=== PATIENT | female | born 1990 | race Caucasian/White ===

== ENCOUNTER → 2019-03-09 12:39 | Outpatient (POV) | payer OTHER, SELFPAY ==
[2019-03-09 14:05] LABS: Basophils # 0.1 K/mm3 (0-0.2); Basophils % 0.8 % (0.1-2.0); Eosinophils # 0.1 K/mm3 (0.0-0.4); Eosinophils % 1.3 % (0.1-12.0); Hemoglobin 12.6 g/dL (12.2-16.2); Lymphocytes # 2.2 K/mm3 (0.7-4.5); Lymphocytes % 28.2 % (10-50); Mean Corpuscular HGB Conc 32.2 g/dL (31.8-35.4); Mean Corpuscular Hemoglobin 26.3 pg (27.0-31.2); Mean Corpuscular Volume 81.8 fl (81-99); Mean Platelet Volume 9.2 fl (7.4-10.4); Monocytes # 0.3 K/mm3 (0.1-1.0); Monocytes % 4.3 % (1.7-9.3); Neutrophils # 5.1 K/mm3 (1.8-7.8); Neutrophils % 65.4 % (37.0-80.0); Platelet Count 309 K/mm3 (142-424); Red Blood Count 4.77 M/mm3 (4.20-5.40); Red Cell Distribution Width 13.1 % (11.5-17.5); White Blood Count 7.8 K/mm3 (4.8-10.8)
[2019-03-09 14:21] LABS: Hemoglobin A1C 5.2 % (0.0-7.0)
[2019-03-09 14:48] LABS: Iron 57 ug/dl (28-170)
[2019-03-09 20:25] LABS: Alanine Aminotransferase 34 U/L (12-78); Alkaline Phosphatase 81 U/L (46-116); Anion Gap 16.9 mEq/L (5-15); Aspartate Amino Transferase 27 U/L (15-37); Bilirubin,Total 0.4 mg/dL (0.2-1.0); Blood Urea Nitrogen 16 mg/dL (7-18); Calcium 8.9 mg/dL (8.5-10.1); Carbon Dioxide 24 mmol/L (21.0-32.0); Chloride 104 mmol/L (98-107); Chol/HDL Ratio 3.1 (1-3.5); Cholesterol 177 mg/dL (140-200); Creatinine,Serum 0.81 mg/dL (0.55-1.02); Estimated Glomerular Filt Rate 84 ml/min (>60); Ferritin 86 ng/mL (8-388); GFR (African American) 101 ML/MIN (>60); Globulin 3.9 gm/dl (1.3-3.2); Glucose 83 mg/dL (74-106); HDL Cholesterol 57 mg/dL (29-89); LDL Cholesterol 103 mg/dL (0-130); Phosphorous 3.3 mg/dL (2.4-4.9); Potassium 3.9 mmoL/L (3.5-5.1); Sodium 141 mmol/L (136-145); Thyroid Stimulating Hormone 2.34 uIU/ml (0.358-3.740); Total Protein,Serum 7.9 gm/dL (6.4-8.2); Triglycerides 87 mg/dL (30-200); VLDL Cholesterol 17 mg/dL (0-40)
[2019-03-11 09:27] LABS: Folate 11.5 ng/mL (>3.0); Parathyroid Hormone Intact 22 pg/mL (15-65); Prealbumin 25 mg/dL (14-35); Vitamin D 25 Hydroxy 29.5 ng/mL (30.0-100.0)
[2019-03-13 03:08] LABS: Vitamin E Alpha Tocopherol 9.2 mg/L (5.9-19.4)
[2019-03-13 19:12] LABS: Methylmalonic Acid 137 nmol/L (0-378)
[2019-03-15 08:52] LABS: Vitamin A 45.6 ug/dL (18.9-57.3); Vitamin B1 171.7 nmol/L (66.5-200.0); Vitamin E Gamma Tocopherol 1.9 mg/L (0.7-4.9)
== END ==
PROVIDERS: Visit Provider Physician Assistant
DX: E66.01 Morbid (severe) obesity due to excess calories (principal); Z68.42 Body mass index [BMI] 45.0-49.9, adult; Z71.3 Dietary counseling and surveillance; E55.9 Vitamin D deficiency, unspecified
CPT/HCPCS: 36415; 80053; 80061; 82131; 82652; 82728; 82746; 83036; 83540; 83735; 83970; 84100; 84134; 84425; 84443; 84446; 84590; 85025

== ENCOUNTER → 2019-04-03 11:10 | Outpatient (CLI) | payer OTHER, SELFPAY ==
[2019-04-03 13:19] LABS: Chol/HDL Ratio 2.8 (1-3.5); Cholesterol 146 mg/dL (140-200); HDL Cholesterol 53 mg/dL (29-89); LDL Cholesterol 76 mg/dL (0-130); Triglycerides 84 mg/dL (30-200); VLDL Cholesterol 17 mg/dL (0-40)
== END ==
PROVIDERS: Visit Provider Internal Medicine Adolescent Medicine
DX: E78.49 Other hyperlipidemia (principal)
CPT/HCPCS: 36415; 80061

== ENCOUNTER → 2020-03-12 11:58 | Outpatient (CLI) | payer OTHER, SELFPAY ==
[2020-03-13 11:05] LABS: Covid-19 Nasal PCR Sendout P&C Negative
== END ==
PROVIDERS: PCP Internal Medicine Adolescent Medicine; Visit Provider Internal Medicine Adolescent Medicine
DX: Z20.822 Contact with and (suspected) exposure to COVID-19 (principal); R05 Cough
CPT/HCPCS: U0004

== ENCOUNTER → 2020-03-30 10:36 | Outpatient (CLI) | payer OTHER, SELFPAY ==
--- NOTE | 2020-03-30 10:48 | XR_ITS ---
PROCEDURE: XR KNEE RT 3V XR KNEE LT 3V Referring Doctor: Hunter Roach Patient Age:30Y CLINICAL INDICATION: RIGHT and left KNEE PAIN COMPARISON: no studies prior to today CR XR KNEE LT 3V from 03/30/2020 TECHNIQUE: Right knee: 3 View AP, Oblique, Lateral nonweightbearing Left knee: 3 View AP, Oblique, Lateral nonweightbearing FINDINGS: Right knee three view:--------- Right knee intact with no fracture or dislocation right knee. No lytic or blastic change. The joint spaces well maintained on this nonweightbearing film with no definitive degenerative changes radiographically. Likely upper normal joint fluid suprapatellar bursa on lateral view. No osseous lesions. Normal mineralization. -------left knee three view ------ Left knee intact with no fracture or dislocation left knee. . No lytic or blastic change. The joint spaces well maintained on this nonweightbearing film with no definitive degenerative changes radiographically. Likely upper normal joint fluid suprapatellar bursa on lateral view. No osseous lesions. Normal mineralization. IMPRESSION: Right and left knee appear intact-no significant findings on plain film the. . Joint space well maintained bilateral on these nonweightbearing studies Suggestion upper normal joint fluid at suprapatellar bursa on lateral views Dictated by: Lito Dia MD 03/30/2020 16:44 Lito Dia MD in [place] 03/30/2020 16:44
== END ==
PROVIDERS: PCP Internal Medicine Adolescent Medicine; Referring Provider Internal Medicine Adolescent Medicine; Visit Provider Internal Medicine Adolescent Medicine
DX: M25.562 Pain in left knee (principal); M25.561 Pain in right knee
CPT/HCPCS: 73562

== ENCOUNTER 2020-06-06 10:00 | Outpatient (RCR) | payer OTHER, SELFPAY ==
--- NOTE | 2020-04-08 10:39 | HMH.PTOPEV ---
PT Outpatient Evaluation Rehab PT Outpatient Evaluation Start: 04/08/20 10:10 Freq: Status: Active Protocol: Document 04/08/20 10:16 CARLOS (Rec: 04/08/20 10:39 CARLOS [id number]) Electronically Signed By Reno Tello PT 04/08/20 10:16 Outpatient Therapy Subjective History Subjective History This is the initial Physical THerapy evaluation for Maria Luisa Yu. Pt is a 30 y/o female referred to PT for c/o B knee pain. Pt reports she was morbidly obese and had severe knee pain all her life. Pt reports ~ july last year she had bariatric surgery and began losing weight. Pt reports she also becam more active at this time. Pt states she thought losing weight would help her knee pain but it has not. Pt reports she has severe pain in knees w/ any squatting activity and severe crepitus w / squating. Chief Complaint Pain Symptom Type Ache,Throb,Sharp,Stabbing Symptoms Relieved By Nothing Symptoms Aggravated By Bending/Stooping,Physical Activity Prior Functional Limitations Squatting,Recreation Activity, Walking,Stairs Current Functional Limitations Squatting,Recreation Activity, Walking,Stairs Symptom Description Intermittent Level of pain today (0-10) 3 Pain scale - at its best (0-10) 2 Pain scale - at its worst (0-10) 8 Hip/Knee Eval Gait Observation General Gait Pattern Observation No Deviations/Normal Assistive Device Assistive Devices None / NA Palpation Tenderness bilateral Knee Palpation Finding Tenderness Knee Palpation Overall Comment TTP along patellar tendon MMT Hip Abduction Strength Grade 5 Normal Hip Adduction Strength Grade 4 Good Hip External Rotation Strength Grade 4 Good Hip Internal Rotation Strength Grade 4 Good Knee Extension Strength Grade 4 Good Knee Flexion Strength Grade 4 Good ROM Hip ROM Reason Not Measured Within Functional Limits Knee ROM Reason Not Measured Within Functional Limits Special Tests Knee Apprehension Test Negative Left,Negative Right Knee Anterior Drawer Test Negative Left,Negative Right Knee Anterior Lindy Test Negative Left,Negative Right Knee Valgus Stress Test Neg
== END 2020-08-28 14:36 | disposition home or self-care (01) ==
LOC: PT 10:00
PROVIDERS: PCP Internal Medicine Adolescent Medicine; Visit Provider Internal Medicine Adolescent Medicine
DX: M25.562 Pain in left knee (principal)
CPT/HCPCS: 97010; 97014; 97033; 97035; 97110; 97163; 97164; G0283

== ENCOUNTER 2020-08-23 19:40 | Emergency (ER) | payer OTHER, SELFPAY ==
[2020-08-23 19:40] VITALS: BP 137/62; PULSE 93; RESP 18; TEMP 38; O2SAT 98; BMI 33.0
--- NOTE | 2020-08-23 20:04 | XR_ITS ---
PROCEDURE INFORMATION: Exam: XR Chest Exam date and time: 08/23/2020 8:04 PM Age: 30 years old Clinical indication: Patient HX: Cough, fever, chills, body ache; Additional info: Cough, fever, chills, body ache. PT has had tubal TECHNIQUE: Imaging protocol: XR of the chest. Views: 2 views. COMPARISON: CR CS5 CERVICAL SPINE 4 OR 5 VIEWS 01/11/2016 10:48 AM FINDINGS: Tubes, catheters and devices: Surgical clips overlie the gallbladder fossa. Lungs: Unremarkable. No consolidation. Pleural spaces: Unremarkable. No pleural effusion. No pneumothorax. Heart/Mediastinum: Unremarkable. No cardiomegaly. Bones/joints: Biphasic curvature of the thoracolumbar spine with dominant dextroconvex curvature centered at T9 having a Parsons angle of 47 degrees. IMPRESSION: No acute findings.
[2020-08-23 20:08] LABS: UTC Influenza A Antigen Negative (Negative)
[2020-08-23 20:08] LABS: Adenovirus,PCR Not Detected (NotDetected); Bordetella Pertussis Not Detected (NotDetected); Chlamydophila Pneumoniae, PCR Not Detected (NotDetected); Coronavirus 19, PCR Not Detected (NotDetected); Coronavirus 229E Not Detected (NotDetected); Coronavirus NL63 Not Detected (NotDetected); Coronavirus OC43 Not Detected (NotDetected); Coronovirus HKU1,PCR Not Detected (NotDetected); Human Metapneumovirus Not Detected (NotDetected); Influenza A, PCR Not Detected (NotDetected); Influenza AH1, 2009 Not Detected (NotDetected); Influenza AH1, PCR Not Detected (NotDetected); Influenza AH3,PCR Not Detected (NotDetected); Influenza B, PCR Not Detected (NotDetected); Mycoplasma Pneumoniae, PCR Not Detected (NotDetected); Parainfluenza 1, PCR Not Detected (NotDetected); Parainfluenza 2, PCR Not Detected (NotDetected); Parainfluenza 3, PCR Not Detected (NotDetected); Parainfluenza 4, PCR Not Detected (NotDetected); Respiratory Syncytial Virus Not Detected (NotDetected); Rhinovirus/Enterovirus Not Detected (NotDetected)
[2020-08-23 20:09] LABS: UTC Influenza B Antigen Negative (Negative); UTC Strep Screen (Rapid) Negative (Negative)
--- NOTE | 2020-08-23 20:15 | HMH.EDUTC ---
[facility] [place] Disposition Clinical Impression: URI (upper respiratory infection) Qualifiers: URI type: unspecified URI Qualified Code(s): J06.9 - Acute upper respiratory infection, unspecified Disposition: Home, Self-Care Condition on Discharge: Good Instructions: DI for Fever (Symptom) -- Adult, Sore Throat, Acute Bronchitis Additional Instructions: *Monitor Temp, Over the counter Motrin or Tylenol as directed/as needed Tylenol every 4 hours and Motrin every 6 hours (as long as your family doctor has told you that you can take it) for fever or pain. and straight to ER if unable to lower temp less than 101.0 after medication given *Warm salt water gargles may help to soothe the throat *Throat Lozenges *Warm fluids like tea with honey may help to soothe the throat *Sleep elevated *Humidifier/Vaporizer Your throat swab was sent for culture. Those results are typically sent to your primary care. Be sure to follow up in 2-3 days with your family doctor/primary care physician if no improvement so they can review those result and treat if necessary. If you don?t have a primary care doctor, I recommend you get one but in the mean time, you will have to return to a walk in clinic Follow up IMMEDIATELY for new or worsening symptoms or no Noticeable improvement over the next 48-72 hours. 911 for difficulty breathing or swallowing You was give Printed prescription for antibiotics if your Upper Respiratory Panel comes back with COVID or other viral syndrome you may tear up and discard the prescriptions, if the test is negative then fill the prescriptions in the next day or two if no improvement and take as directed You were tested for today for COVID19 your test result should be back in the next 24-48 hours, you may call to the [facility] to see if your test results are back in the next 48 hours [phone] [facility] hours are 9am-9pm You was given a handout with instructions for Self Quarantine and Self isolation for while you wait on test results and what to do if they are positive If you are positive the Health Dept will be contacting you also Prescriptions: methylPREDNISolone [Medrol 4mg tab] 4 mg PO DIRECTED #21 tab Prescription Printed Azithromycin [Z-Vineet 250mg Tab] 250 mg PO DIRECTED #6 tab Prescription Printed Referrals: Hunter Roach MD [Primary Care Provider] - As needed Time of Disposition: 21:23 Medical Decision Making - Jose Manuel Inquiry Pt receiving controlled substance: No Jose Manuel was queried for this patient: No Vital Signs: 08/23/20 19:40 08/23/20 20:27 08/23/20 20:32 Temperature 100.4 F H 102.3 F H 102.3 F H Temperature Source Oral Oral Pulse Rate 93 H Pulse Rate [Right Brachial] 93 H Respiratory Rate 18 18 Blood Pressure 137/62 Blood Pressure [Right Arm] 137/62 Blood Pressure Mean [Right Arm] 87 Blood Pressure Source [Right Arm] Automatic Cuff Blood Pressure Position [Right Arm] Sitting 02 Sat by Pulse Oximetry 98 Oxygen Delivery Method Room Air - Lab Data Lab results reviewed: Yes: I reviewed the patient's lab results. Lab Results 08/23/20 19:59: Influenza Type A Ag Negative, Influenza Type B Ag Negative 08/23/20 19:59: Strep Scn Rapid Clinic Negative Orders (Tests/Meds): ED MEDICATIONS Discontinued Medications Generic Name Dose Route Start Last Admin Trade Name Fredis PRN Reason Stop Dose Admin Acetaminophen 650 mg 08/23/20 20:34 08/23/20 20:38 Acetaminophen 325mg Tab PO 08/23/20 20:35 650 mg ONCE ONE Administration Ibuprofen 800 mg 08/23/20 20:25 08/23/20 20:27 Ibuprofen 400 Mg Tablet PO 08/23/20 20:26 800 mg ONCE ONE Administration ORDERS Category Date Time Status Full Resp Panel w/COVID ([facility]) Routine Lab 08/23/20 19:55 Received Strep Screen Confirmation Stat Micro 08/23/20 19:59 Received - Radiology Data #1 Image(s): Chest Image Reviewed: Yes I have reviewed radiologist's interpretation IMPRESSION: No acute findings. Me
[2020-08-23 20:27] VITALS: TEMP 39.1
[2020-08-23 20:32] VITALS: BP 137/62; PULSE 93; RESP 18; TEMP 37.3; O2SAT 98
[2020-08-23 21:18] VITALS: TEMP 37.3
== END 2020-08-23 21:25 | disposition home or self-care (01) ==
PROVIDERS: Emergency Provider Nurse Practitioner; PCP Internal Medicine Adolescent Medicine
DX: J06.9 Acute upper respiratory infection, unspecified (principal)
CPT/HCPCS: 71046; 87581; 87633; 87798; 87804; 87880; 99202; 99203; G0463

== ENCOUNTER → 2020-11-25 08:04 | Outpatient (CLI) | payer OTHER, SELFPAY ==
[2020-11-25 08:34] LABS: Basophils # 0.1 K/mm3 (0-0.2); Basophils % 0.9 % (0.1-2.0); Eosinophils # 0.2 K/mm3 (0.0-0.4); Eosinophils % 3.6 % (0.1-12.0); Hematocrit 40.2 % (37.0-47.0); Hemoglobin 13.1 g/dL (12.2-16.2); Lymphocytes % 31.5 % (10-50); Mean Corpuscular HGB Conc 32.7 g/dL (31.8-35.4); Mean Corpuscular Hemoglobin 28.4 pg (27.0-31.2); Mean Corpuscular Volume 86.8 fl (81-99); Mean Platelet Volume 9.5 fl (7.4-10.4); Monocytes # 0.3 K/mm3 (0.1-1.0); Monocytes % 4.6 % (1.7-9.3); Neutrophils # 3.7 K/mm3 (1.8-7.8); Neutrophils % 59.5 % (37.0-80.0); Platelet Count 233 K/mm3 (142-424); Red Blood Count 4.63 M/mm3 (4.20-5.40); Red Cell Distribution Width 13.5 % (11.5-17.5); White Blood Count 6.3 K/mm3 (4.8-10.8)
[2020-11-25 09:13] LABS: Free Thyroxine Index 2.8 ug/dL (5.93-13.13); T4 (Thyroxine) 8.5 ug/dl (5.53-11.0); Triiodothryronine (T3) Uptake 33 % (23.5-40.5)
[2020-11-25 09:26] LABS: Thyroid Stimulating Hormone 3.63 uIU/mL (0.465-4.68)
[2020-11-25 19:18] LABS: Alanine Aminotransferase 22 U/L (12-78); Albumin Level 4.2 g/dl (3.5-5.0); Albumin/Globulin Ratio 1.2 (1.1-1.8); Alkaline Phosphatase 78 U/L (38-126); Anion Gap 11.1 mEq/L (5-15); Aspartate Amino Transferase 29 U/L (14-36); Bilirubin,Total 0.5 mg/dl (0.2-1.3); Blood Urea Nitrogen 17 mg/dl (7-17); Calcium 9.2 mg/dl (8.4-10.2); Carbon Dioxide 27 mmol/L (22.0-30.0); Chloride 107 mmol/L (98-107); Estimated Glomerular Filt Rate 117 ml/min (>60); GFR (African American) 142 ML/MIN (>60); Globulin 3.5 g/dL (1.3-3.2); Glucose 89 mg/dl (74-100); Potassium 4.1 mmoL/L (3.5-5.1); Sodium 141 mmol/L (136-145); Total Protein,Serum 7.7 g/dl (6.3-8.2)
[2020-11-25 19:53] LABS: Ferritin 40.9 ng/ml (6.24-137)
[2020-11-25 20:07] LABS: Vitamin B12 415 pg/mL (239-931)
== END ==
PROVIDERS: Visit Provider Internal Medicine Adolescent Medicine
DX: R53.81 Other malaise (principal); R53.83 Other fatigue
CPT/HCPCS: 36415; 80053; 82607; 82728; 84436; 84443; 84479; 85025

== ENCOUNTER 2021-03-10 17:40 | Outpatient (CLI) | payer OTHER, SELFPAY ==
[2021-03-10 18:15] VITALS: BP 145/72; PULSE 68; RESP 14; TEMP 37.3; O2SAT 100
[2021-03-10 18:50] LABS: Basophils # 0.1 K/mm3 (0-0.2); Basophils % 1.6 % (0.1-2.0); Eosinophils # 0.1 K/mm3 (0.0-0.4); Eosinophils % 1.4 % (0.1-12.0); Hemoglobin 13.3 g/dL (12.2-16.2); Lymphocytes # 2.7 K/mm3 (0.7-4.5); Lymphocytes % 36.4 % (10-50); Mean Corpuscular HGB Conc 32.3 g/dL (31.8-35.4); Mean Corpuscular Hemoglobin 28.3 pg (27.0-31.2); Mean Corpuscular Volume 87.4 fl (81-99); Mean Platelet Volume 10.6 fl (7.4-10.4); Monocytes # 0.3 K/mm3 (0.1-1.0); Monocytes % 4.6 % (1.7-9.3); Neutrophils # 4.1 K/mm3 (1.8-7.8); Platelet Count 219 K/mm3 (142-424); Red Blood Count 4.69 M/mm3 (4.20-5.40); Red Cell Distribution Width 13.1 % (11.5-17.5); White Blood Count 7.3 K/mm3 (4.8-10.8)
[2021-03-10 19:10] LABS: Alanine Aminotransferase 25 U/L (12-78); Albumin Level 4.4 g/dl (3.5-5.0); Albumin/Globulin Ratio 1.3 (1.1-1.8); Alkaline Phosphatase 72 U/L (38-126); Anion Gap 14.2 mEq/L (5-15); Aspartate Amino Transferase 35 U/L (14-36); Bilirubin,Total 0.3 mg/dl (0.2-1.3); Blood Urea Nitrogen 19 mg/dl (7-17); Calcium 8.8 mg/dl (8.4-10.2); Carbon Dioxide 23 mmol/L (22.0-30.0); Chloride 104 mmol/L (98-107); Estimated Glomerular Filt Rate 117 ml/min (>60); GFR (African American) 141 ML/MIN (>60); Globulin 3.3 g/dL (1.3-3.2); Glucose 90 mg/dl (74-100); Magnesium 1.8 mg/dl (1.6-2.3); Potassium 4.2 mmoL/L (3.5-5.1); Sodium 137 mmol/L (136-145); Total Protein,Serum 7.7 g/dl (6.3-8.2)
== END 2021-03-10 19:15 | disposition home or self-care (01) ==
PROVIDERS: PCP Internal Medicine Adolescent Medicine; Visit Provider Nurse Practitioner Family
DX: R55 Syncope and collapse (principal); U07.1 COVID-19
CPT/HCPCS: 36415; 80053; 83735; 85025; 96365; 96374; J2405

== ENCOUNTER 2021-12-10 17:24 | Emergency (ER) | payer OTHER, SELFPAY ==
--- NOTE | 2021-12-10 17:29 | EXP.UTC ---
Discharge Plan Disposition Patient Disposition: Home, Self-Care Condition: Good Prescriptions Prescriptions: New ibuprofen [IBU] 800 mg tablet 800 mg PO Q8HP PRN (Reason: Moderate Pain) Qty: 30 0RF benzonatate [benzonatate] 100 mg capsule 100 mg PO TIDP PRN (Reason: Cough) Qty: 30 0RF oseltamivir [Tamiflu] 75 mg capsule 75 mg PO BID Qty: 10 0RF ondansetron 4 mg Tablet,Disintegrating 4 mg PO Q8H PRN (Reason: Nausea) Qty: 20 0RF No Action azithromycin 250 MG tablet 250 mg PO DIRECTED Qty: 6 0RF Rx Instructions: Take two (2) tablets on day #1, then one (1) tablet day #2 thru #5 methylprednisolone 4 MG tablet 4 mg PO DIRECTED Qty: 21 0RF Rx Instructions: Take as directed on package instructions Referrals Follow up/Referrals: Hunter Roach MD [Primary Care Provider] - See instructions Activity Restrictions/Add. Instructions Additional Instructions/Restrictions: Drink plenty of fluids. Take tylenol or ibuprofen for pain or fever. Take the medications as directed. Follow up with your regular doctor. GO TO THE ER FOR ANY WORSENING SYMPTOMS Quarantine until you know the results of your covid-19 test. Notify your school or workplace of your results and follow their instructions regarding return to work/school. Clinical Impressions Clinical Impression: Viral syndrome, Exposure to influenza Instructions Patient Instructions: Influenza, DI for Influenza -- Adult, Oseltamivir Discharge ED Provider: Garth Nelson [facility] General Stated complaint: ache,fever,chills Time Seen by Provider: 12/10/21 17:29 History of Present Illness Provider Complaint: She states that since yesterday she has developed a dry cough, headache and body aches. 2 of her children tested positive for influenza last night. Related Data Previous Rx's Medication Instructions Recorded azithromycin 250 mg tablet 250 mg PO DIRECTED #6 tabs 08/23/20 methylprednisolone 4 mg tablet 4 mg PO DIRECTED #21 tabs 08/23/20 benzonatate 100 mg capsule 100 mg PO TIDP PRN Cough #30 caps 12/10/21 ibuprofen 800 mg tablet (IBU) 800 mg PO Q8HP PRN Moderate Pain 12/10/21 #30 tabs ondansetron 4 mg disintegrating 4 mg PO Q8H PRN Nausea #20 tabs 12/10/21 tablet oseltamivir 75 mg capsule (Tamiflu) 75 mg PO BID #10 caps 12/10/21 Allergies Allergy/AdvReac Type Severity Reaction Status Date / Time No Known Allergies Allergy Verified 02/23/18 09:40 [facility] Social History Smoking Status: Never smoker alcohol intake: never current occupational status: other Travel in the last 8 weeks: None ROS Obtained: Yes All systems reviewed & no additional complaints except as documented Constitutional Constitutional: Reports as per HPI, Reports chills and Denies fever(s) Eyes Eyes: Denies eye discharge ENT Ears, Nose, Mouth, and Throat: Denies dizziness, Denies otalgia and Denies sore throat Cardiovascular Cardiovascular: Denies chest pain Respiratory Respiratory: Denies shortness of breath, Denies chest congestion, Reports cough, Denies stridor and Denies wheezing Gastrointestinal Gastrointestingal: Denies nausea or vomiting Musculoskeletal Musculoskeletal: Reports system reviewed and no additional complaints, except as documented and Denies arthralgias Integumentary/Breasts Skin/Breast: Denies rash Neurologic Neurologic: Denies dizziness and Denies paresthesias Allergic/Immunologic Allergic/Immunologic: Denies wheezing Physical Exam General General appearance: alert and in no apparent distress Head Head exam: atraumatic, normocephalic and normal inspection Eye Eye exam: Present normal appearance, PERRL and EOMI ENT ENT exam: Present normal exam, normal oropharynx, mucous membranes moist, TM's normal bilaterally and normal external ear exam Neck Neck exam: Present normal inspection, full ROM and trachea midline; Absent mening
[2021-12-10 17:35] VITALS: BP 115/72; PULSE 68; RESP 18; TEMP 36.9; O2SAT 100; BMI 34.0
[2021-12-10 17:58] LABS: UTC Influenza A Antigen Negative (Negative); UTC Influenza B Antigen Negative (Negative)
[2021-12-10 18:44] VITALS: BP 120/87; PULSE 62; RESP 17; TEMP 36.9; O2SAT 100
== END 2021-12-10 18:45 | disposition home or self-care (01) ==
PROVIDERS: Emergency Provider Nurse Practitioner Family; PCP Internal Medicine Adolescent Medicine
DX: Z20.828 Contact with and (suspected) exposure to other viral communicable diseases (principal); B34.9 Viral infection, unspecified; R50.9 Fever, unspecified
CPT/HCPCS: 87804; 99212; G0463

== ENCOUNTER 2022-01-07 16:41 | Emergency (ER) | payer OTHER, SELFPAY ==
--- NOTE | 2022-01-07 17:51 | EXP.UTC ---
Discharge Plan Disposition Patient Disposition: Home, Self-Care Condition: Good Prescriptions Prescriptions: New benzonatate [benzonatate] 100 mg capsule 100 mg PO TIDP PRN (Reason: Cough) Qty: 30 0RF promethazine-DM 6.25-15 mg/5 mL Syrup 5 ml PO Q6H PRN (Reason: Cough) Qty: 240 0RF Paxlovid (EUA) 300 mg (150 mg x 2)-100 mg tablet See Rx Instructions .ROUTE .COMPLEX Qty: 30 0RF Rx Instructions: take TWO 150 mg tablets of nirmatrelvir with ONE 100 mg tablet of ritonavir twice daily for 5 days methylprednisolone 4 mg Tablets,Dose Pack 4 mg PO DIRECTED Qty: 21 0RF No Action azithromycin 250 MG tablet 250 mg PO DIRECTED Qty: 6 0RF Rx Instructions: Take two (2) tablets on day #1, then one (1) tablet day #2 thru #5 methylprednisolone 4 MG tablet 4 mg PO DIRECTED Qty: 21 0RF Rx Instructions: Take as directed on package instructions ibuprofen [IBU] 800 mg tablet 800 mg PO Q8HP PRN (Reason: Moderate Pain) Qty: 30 0RF benzonatate [benzonatate] 100 mg capsule 100 mg PO TIDP PRN (Reason: Cough) Qty: 30 0RF oseltamivir [Tamiflu] 75 mg capsule 75 mg PO BID Qty: 10 0RF ondansetron 4 mg Tablet,Disintegrating 4 mg PO Q8H PRN (Reason: Nausea) Qty: 20 0RF Referrals Follow up/Referrals: Hunter Roach MD [Primary Care Provider] - See instructions Activity Restrictions/Add. Instructions Additional Instructions/Restrictions: Drink plenty of fluids. Take tylenol or ibuprofen for pain or fever. Take the medications as directed. Follow up with your regular doctor. GO TO THE ER FOR ANY WORSENING SYMPTOMS Clinical Impressions Clinical Impression: COVID-19 Stand Alone Forms Stand Alone Forms: Work/School Release Instructions Patient Instructions: Coronavirus Disease 2019, Preventing the Spread of Coronavirus Discharge Instructions Discharge ED Provider: Garth Nelson [facility] [place] HPI General Stated complaint: HOME +COVID TEST, BODY ACHES, EAR ACHE Time Seen by Provider: 01/07/22 17:51 History of Present Illness Provider Complaint: She states that she has felt bad for the past 2 days. She tested positive for covid-19 yesterday. She came in today to see if there were any medications that she could be prescribed that might help her feel better. Related Data Previous Rx's Medication Instructions Recorded azithromycin 250 mg tablet 250 mg PO DIRECTED #6 tabs 08/23/20 methylprednisolone 4 mg tablet 4 mg PO DIRECTED #21 tabs 08/23/20 benzonatate 100 mg capsule 100 mg PO TIDP PRN Cough #30 caps 12/10/21 ibuprofen 800 mg tablet (IBU) 800 mg PO Q8HP PRN Moderate Pain 12/10/21 #30 tabs ondansetron 4 mg disintegrating 4 mg PO Q8H PRN Nausea #20 tabs 12/10/21 tablet oseltamivir 75 mg capsule (Tamiflu) 75 mg PO BID #10 caps 12/10/21 benzonatate 100 mg capsule 100 mg PO TIDP PRN Cough #30 caps 01/07/22 methylprednisolone 4 mg tablets in 4 mg PO DIRECTED #21 tabs 01/07/22 a dose pack nirmatrelvir 300 mg (150 mg See Rx Instructions PO .COMPLEX 01/07/22 x2)-ritonavir 100 mg tablet,dose #30 tabs pack(EUA) (Paxlovid) promethazine-DM 6.25 mg-15 mg/5 mL 5 ml PO Q6H PRN Cough #240 mL 01/07/22 oral syrup Allergies Allergy/AdvReac Type Severity Reaction Status Date / Time No Known Allergies Allergy Verified 01/07/22 18:08 [facility] Social History Smoking Status: Never smoker alcohol intake: never current occupational status: other Travel in the last 8 weeks: None ROS Obtained: Yes All systems reviewed & no additional complaints except as documented Constitutional Constitutional: Reports chills and Reports fever(s) Eyes Eyes: Denies eye discharge ENT Ears, Nose, Mouth, and Throat: Reports as per HPI Cardiovascular Cardiovascular: Denies chest pain Respiratory Respiratory: Denies chest congestion and Reports cough Gastrointestinal Gastrointestingal: Reports paula
[2022-01-07 18:04] VITALS: BP 119/85; PULSE 69; RESP 18; TEMP 37; O2SAT 100; BMI 32.3
[2022-01-07 18:39] VITALS: BP 119/85; PULSE 69; RESP 18; TEMP 37
== END 2022-01-07 18:39 | disposition home or self-care (01) ==
PROVIDERS: Emergency Provider Nurse Practitioner Family; PCP Internal Medicine Adolescent Medicine
DX: U07.1 COVID-19 (principal)
CPT/HCPCS: 99212; G0463

== ENCOUNTER → 2022-03-30 17:32 | Outpatient (CLI) | payer OTHER, SELFPAY | PROVIDERS: PCP Internal Medicine Adolescent Medicine; Visit Provider Nurse Practitioner Family | DX: R00.2 Palpitations (principal) | CPT/HCPCS: 93225; 93226 ==

== ENCOUNTER → 2022-04-06 15:02 | Outpatient (CLI) | payer OTHER, SELFPAY ==
--- NOTE | 2022-04-06 | CA_ITS ---
APPROVED REPORT EXAM: Comprehensive 2D, Doppler, and color-flow Echocardiogram Job Training Specialist: Tiffanie Camarena CRT Ht: 5 ft 10 in Wt: 230lbs BSA: 2.21 BP: 110/70 mmHg Indications: Chest Pain, Shortness of Breath, Palpitations, Daughter has a valve disorder. 2D Dimensions LVOT 1.97 cm (M/F) 1.5-2.5 LA Volume 78.60 mL LA Volume Index 34.60 mL/m2 (M/F) 16-34 M-Mode Dimensions RVDd 1.51 cm (0.9-2.6) LA Diam 3.83 cm (1.9-4.0) LVDd 5.43 cm (3.5-5.7) Ao Diam 3.19 cm (2.0-3.7) LVDs 3.78 cm (3.5-5.7) IVSd 1.10 cm (0.6-1.1) PWd 0.96 cm (0.6-1.1) EF (Teich) 57.20% FS 30.40% EDV (Teich) 143.10 mL TAPSE 2.91 (<1.7) ESV (Teich) 61.20 mL LV Diastology E Decel Time 167.00 (160-240 msec) E/A Ratio 1.58 MED E' 11.80 (< 7 cm/sec) MED A' 8.00 cm/s E'/MED E' Ratio 7.90 (>14) LAT E' 17.90 (<10 cm/sec) LAT A' 6.20 cm/s E/LAT E' Ratio 5.21 (>14) Aortic Valve AO Peak GR. 8.80 mmHg Mitral Valve MV A Velocity 59.00 (40-130 cm/s) E/A Ratio 1.58 MV Decel. Time 167.00 (160-240 ms) Pulmonary Valve PV Peak Velocity 195.00 (50-150 cm/s) Tricuspid Valve TR P. Velocity 294.00 cm/s RAP Estimate 10.00 mmHg RVSP 44.60 mmHg Left Ventricle Left atrium is normal size, left ventricle is normal size, estimated ejection fraction 55% with no regional wall motion abnormality, diastolic parameters are within normal range. Right Ventricle Right atrium, right ventricular normal size and contractility. Aortic Valve Aortic valve is grossly normal, there is no aortic stenosis aortic insufficiency. Mitral Valve Mitral valve is grossly normal, there is trace mitral regurgitation. Tricuspid Valve Tricuspid valve grossly normal, there is trace tricuspid regurgitation, tricuspid regurgitation jet plus is inadequate for calculation of the right ventricular systolic pressure. Pulmonic Valve Pulmonic valve is poorly visualized. Great Vessels Aortic root is normal size. Inferior vena cava is normal size with normal inspiratory collapse. Pericardium No significant pericardial effusion noted. Conclusion 1. Normal left ventricular size preserved left ventricular systolic function, estimated ejection fraction 55% with no regional wall motion abnormality, diastolic parameters are within normal range. 2. Trace mitral and tricuspid regurgitation. 3. No significant pericardial effusion noted. 4. Inferior vena cava is normal size with normal inspiratory collapse. Electronically signed by : Niles High MD 04/06/2022 16:56:50
== END ==
PROVIDERS: PCP Internal Medicine Adolescent Medicine; Visit Provider Nurse Practitioner Family
DX: R00.2 Palpitations (principal); R01.2 Other cardiac sounds
CPT/HCPCS: 93306

== ENCOUNTER 2023-01-14 12:53 | Emergency (ER) | payer OTHER, SELFPAY ==
[2023-01-14 12:54] VITALS: BP 124/68; PULSE 89; RESP 16; TEMP 36.8; O2SAT 100; BMI 28.7
[2023-01-14 13:12] LABS: POC Glucose,Bedside 82 (70-110)
--- NOTE | 2023-01-14 13:24 | CT_ITS ---
FINAL REPORT TECHNIQUE: After the administration of contrast, axial images were obtained through the abdomen and pelvis by computed tomography. The study was performed with techniques to keep radiation dose as low as reasonably achievable, (ALARA). Individual dose reduction techniques using automated exposure control or adjustment of mA and/or kV according to the patient's size were employed. CLINICAL HISTORY: sudden mid/epigastric abd pain, severe FINDINGS: Abdomen: The lung bases are clear. There is a small hiatal hernia. The liver parenchyma is homogeneous. The gallbladder is absent. Note is made of gastric sleeve. The spleen, pancreas, adrenals and kidneys appear unremarkable. The aorta is normal in caliber. There is no free fluid or adenopathy. Pelvis: The cecum is low lying. The appendix is not identified consistent with history of appendectomy. The urinary bladder is incompletely distended. The uterus is midline and anteverted. There is no free fluid or adenopathy. There is 25 degrees lumbar scoliosis convex to the left. IMPRESSION: No acute intra-abdominal process. Reviewed, Interpreted and Dictated by Allen Harding MD Transcribed by Tierney Banda Authenticated and . [facility]
--- NOTE | 2023-01-14 13:25 | HMH.EDGENADL ---
Discharge Plan Disposition Patient Disposition: Home, Self-Care Prescriptions Prescriptions: No Action azithromycin 250 MG tablet 250 mg PO DIRECTED Qty: 6 0RF Rx Instructions: Take two (2) tablets on day #1, then one (1) tablet day #2 thru #5 methylprednisolone 4 MG tablet 4 mg PO DIRECTED Qty: 21 0RF Rx Instructions: Take as directed on package instructions ibuprofen [IBU] 800 mg tablet 800 mg PO Q8HP PRN (Reason: Moderate Pain) Qty: 30 0RF benzonatate [benzonatate] 100 mg capsule 100 mg PO TIDP PRN (Reason: Cough) Qty: 30 0RF oseltamivir [Tamiflu] 75 mg capsule 75 mg PO BID Qty: 10 0RF ondansetron 4 mg Tablet,Disintegrating 4 mg PO Q8H PRN (Reason: Nausea) Qty: 20 0RF benzonatate [benzonatate] 100 mg capsule 100 mg PO TIDP PRN (Reason: Cough) Qty: 30 0RF promethazine-DM 6.25-15 mg/5 mL Syrup 5 ml PO Q6H PRN (Reason: Cough) Qty: 240 0RF Paxlovid 300 mg (150 mg x 2)-100 mg tablet See Rx Instructions .ROUTE .COMPLEX Qty: 30 0RF Rx Instructions: take TWO 150 mg tablets of nirmatrelvir with ONE 100 mg tablet of ritonavir twice daily for 5 days methylprednisolone 4 mg Tablets,Dose Pack 4 mg PO DIRECTED Qty: 21 0RF Referrals Follow up/Referrals: Hunter Roach MD [Primary Care Provider] - See instructions Activity Restrictions/Add. Instructions Additional Instructions/Restrictions: There was no emergent medical condition identified on your CAT scan today and your serial abdominal exams were benign from a surgical standpoint. I would recommend that you follow-up with your bariatric surgeon to discuss this with them as it could be an intraluminal ulcer this may causing your pain. Please return within 12 to 24 hours with any significant worsening or ongoing symptoms as there remains some diagnostic uncertainty. Clinical Impressions Clinical Impression: Sudden onset of severe abdominal pain Instructions Patient Instructions: DI for Acute Abdominal Pain Discharge ED Provider: Solange Diaz General Adult HPI General Chief complaint: Abdominal Pain Stated complaint: abd pain, vomiting Time Seen by Provider: 01/14/23 13:18 Mode of Arrival: Wheelchair Source of Information: Patient Limitations: No Limitations Description of Symptoms (Recalled from ER Triage Doc. by RN): Presents to ED with c/o sudden onset 6/10 stomach pain thay radiates to her back with N/V/D that started when she was eating lunch. Patient reports she became very lightheaded with blurred vision and shakiness. Patient reports taking 1g Tylenol and 4mg Zofran with little relief. History of Present Illness HPI narrative: Patient is a 30-year-old female with a history of numerous abdominal surgeries including cholecystectomy appendectomy C-sections tubal ligation and gastric sleeve presents today with sudden abdominal pain. She states that she was in her normal state of health when about 1 hour prior to arrival she had sudden epigastric and mid abdominal pain that radiated to the back. She states that this was associated with nausea vomiting diarrhea diaphoresis and lightheadedness. The pain is still severe but has eased off a slight amount. She has not had any flatus today but has had some diarrhea has not been constipated prior today. History of any vascular pathology. No history of any peptic ulcer disease or diverticulitis. Related Data Previous Rx's Medication Instructions Recorded azithromycin 250 mg tablet 250 mg PO DIRECTED #6 tabs 08/23/20 methylprednisolone 4 mg tablet 4 mg PO DIRECTED #21 tabs 08/23/20 benzonatate 100 mg capsule 100 mg PO TIDP PRN Cough #30 caps 12/10/21 ibuprofen 800 mg tablet (IBU) 800 mg PO Q8HP PRN Moderate Pain 12/10/21 #30 tabs ondansetron 4 mg disintegrating 4 mg PO Q8H PRN Nausea #20 tabs 12/10/21 tablet oseltamivir 75 mg capsule (Tamiflu) 75 mg PO BID #10 caps 12/10/21 benzonatate 100 mg capsule 100 mg PO TIDP PRN Cough #30 caps
--- NOTE | 2023-01-14 13:25 | PC.NURSE ---
Handed off report to Janelle SANDOVAL
[2023-01-14 13:48] LABS: Chloride 105 mmol/L (98-107); Sodium 139 mmol/L (136-145)
[2023-01-14 13:49] LABS: Basophils % 0.4 % (0.1-2.0); Eosinophils # 0.3 K/mm3 (0.0-0.4); Eosinophils % 3.3 % (0.1-12.0); Hematocrit 41.5 % (37.0-47.0); Hemoglobin 13.9 g/dL (12.2-16.2); Lymphocytes # 2.6 K/mm3 (0.7-4.5); Lymphocytes % 32.2 % (10-50); Mean Corpuscular HGB Conc 33.6 g/dL (31.8-35.4); Mean Corpuscular Hemoglobin 28.9 pg (27.0-31.2); Mean Platelet Volume 9.4 fl (7.4-10.4); Monocytes # 0.4 K/mm3 (0.1-1.0); Monocytes % 4.9 % (1.7-9.3); Neutrophils # 4.8 K/mm3 (1.8-7.8); Neutrophils % 59.2 % (37.0-80.0); Platelet Count 244 K/mm3 (142-424); Potassium 3.6 mmoL/L (3.5-5.1); Red Blood Count 4.83 M/mm3 (4.20-5.40); White Blood Count 8.1 K/mm3 (4.8-10.8)
[2023-01-14 13:51] LABS: Alanine Aminotransferase 46 U/L (12-78); Alkaline Phosphatase 87 U/L (38-126); Anion Gap 12.6 mEq/L (5-15); Aspartate Amino Transferase 75 U/L (14-36); Bilirubin,Total 0.6 mg/dl (0.2-1.3); Blood Urea Nitrogen 23 mg/dl (7-17); Carbon Dioxide 25 mmol/L (22.0-30.0); Creatinine Clearance Estimated 165 mL/min (50-200); Estimated Glomerular Filt Rate 97 ml/min (>60); GFR (African American) 117 ML/MIN (>60); Lipase 147 U/L (23-300)
[2023-01-14 13:52] LABS: Albumin Level 4.7 g/dl (3.5-5.0); Albumin/Globulin Ratio 1.3 (1.1-1.8); Calcium 9.1 mg/dl (8.4-10.2); Globulin 3.6 g/dL (1.3-3.2); Glucose 100 mg/dl (74-100); Lactic Acid 1.4 mmol/L (0.7-2.1); Total Protein,Serum 8.3 g/dl (6.3-8.2)
[2023-01-14 13:57] VITALS: BP 138/78; PULSE 89; O2SAT 98
[2023-01-14 14:00] VITALS: BP 133/72; PULSE 81; O2SAT 99
[2023-01-14 14:30] VITALS: BP 133/73; PULSE 82; O2SAT 95
[2023-01-14 14:45] VITALS: PULSE 83; O2SAT 98
[2023-01-14 15:13] VITALS: BP 133/73; PULSE 82; RESP 16; TEMP 36.7; O2SAT 98
== END 2023-01-14 15:14 | disposition home or self-care (01) ==
PROVIDERS: Emergency Provider Student in an Organized Health Care Education/Training Program; PCP Internal Medicine Adolescent Medicine
DX: R10.13 Epigastric pain (principal); R11.2 Nausea with vomiting, unspecified; R42 Dizziness and giddiness; R19.7 Diarrhea, unspecified; Z98.84 Bariatric surgery status
CPT/HCPCS: 74177; 80053; 82962; 83605; 83690; 85025; 96361; 96374; 96375; 99285; J2405; Q9967

== ENCOUNTER 2023-02-13 14:58 | Emergency (ER) | payer OTHER, SELFPAY ==
[2023-02-13 15:25] VITALS: BP 116/73; PULSE 82; RESP 20; TEMP 36.8; O2SAT 100; BMI 30.1
--- NOTE | 2023-02-13 15:37 | ED_ITS ---
Discharge Plan Disposition Patient Disposition: Home, Self-Care Condition: Good Prescriptions Prescriptions: New amoxicillin [amoxicillin] 875 mg tablet 875 mg PO Q12H Qty: 20 0RF [id number] [Bromfed DM] 2-30-10 mg/5 mL Syrup 5 ml PO Q6H PRN (Reason: Cough) Qty: 240 0RF prednisone 10 mg tablet 10 mg PO BID 3 Days Qty: 6 0RF No Action sertraline 50 mg tablet 50 mg PO DAILY Patient Comments: TAKE 1 TABLET BY MOUTH ONCE DAILY Referrals Follow up/Referrals: Hunter Roach MD [Primary Care Provider] - See instructions Activity Restrictions/Add. Instructions Additional Instructions/Restrictions: Drink plenty of fluids. Take tylenol or ibuprofen for pain or fever. Take the medications as directed. Follow up with your regular doctor. GO TO THE ER FOR ANY WORSENING SYMPTOMS Clinical Impressions Clinical Impression: Strep throat Instructions Patient Instructions: Strep Throat, DI for Strep Throat Discharge ED Provider: Garth Nelson [facility] General Stated complaint: tonsils swollen with blisters Time Seen by Provider: 02/13/23 15:37 History of Present Illness Provider Complaint: She states that she has had sore throat for the past 3 days. Related Data Home Medications Medication Instructions Recorded Confirmed sertraline 50 mg tablet 50 mg PO DAILY 02/13/23 02/13/23 Previous Rx's Medication Instructions Recorded amoxicillin 875 mg tablet 875 mg PO Q12H #20 tabs 02/13/23 [id number]-dbcbwmgvbzwygee-EZ 5 ml PO Q6H PRN Cough #240 mL 02/13/23 2 mg-30 mg-10 mg/5 mL oral syrup (Bromfed DM) prednisone 10 mg tablet 10 mg PO BID 3 days #6 tabs 02/13/23 Allergies Allergy/AdvReac Type Severity Reaction Status Date / Time No Known Allergies Allergy Verified 01/07/22 18:[address] [facility] Disclaimer: The information contained in this section may have been updated after the patient was seen, as this information can be updated by other users. Social History Smoking Status: Never smoker alcohol intake: never current occupational status: other Travel in the last 8 weeks: None ROS Obtained: Yes All systems reviewed & no additional complaints except as documented Constitutional Constitutional: Reports chills and Reports fever(s) Eyes Eyes: Denies eye discharge ENT Ears, Nose, Mouth, and Throat: Reports as per HPI Cardiovascular Cardiovascular: Denies chest pain Respiratory Respiratory: Denies chest congestion and Reports cough Gastrointestinal Gastrointestingal: Reports nausea; Denies abdominal pain, constipation, cramping, diarrhea or vomiting Musculoskeletal Musculoskeletal: Denies arthralgias Integumentary/Breasts Skin/Breast: Denies rash Neurologic Neurologic: Denies paresthesias Physical Exam General General appearance: alert and in no apparent distress Head Head exam: atraumatic, normocephalic and normal inspection Eye Eye exam: Present normal appearance, PERRL and EOMI ENT ENT exam: Present mucous membranes moist and normal external ear exam Expanded ENT Exam TM/Canal exam: Bilateral TM: erythema and bulging Nose exam: Absent sinus tenderness Mouth exam: Present normal external inspection; Absent drooling Teeth exam: Present normal inspection Throat exam: Present tonsillar erythema, tonsillomegaly and tonsillar exudate Neck Neck exam: Present normal inspection, full ROM and trachea midline; Absent tenderness, meningismus or lymphadenopathy Chest Chest inspection: Present normal inspection and symmetric chest wall rise; Absent tenderness Respiratory Respiratory exam: Present normal lung sounds bilaterally; Absent respiratory distress, wheezes, stridor or accessory muscle use Cardiovascular Cardiovascular exam: Present regular rate and normal rhythm; Absent systolic murmur or diastolic murmur Abdominal Exam Abdominal exam: Present soft and normal bowel sounds; Absent distention, tenderness, guarding, rebound or rigidity Extremities Exam Extremities exam: Present normal inspection and normal capillary refill; Absent calf tenderness Back Exam Back exam: Present normal inspection and full ROM; Absent tenderness, CVA tenderness (R) or CVA tenderness (L) Neurological Exam Neurological exam: Present alert, oriented X3 and CN II-XII intact Psychiatric Psychiatric exam: Present normal affect and normal mood Skin Skin exam: Present warm, dry, intact and normal color Medical Decision Making Medical Records Medical records reviewed: No I reviewed the patient's medical records. Jose Manuel Inquiry Pt receiving controlled substance: No Lab Data Lab results reviewed: Yes I reviewed the patient's lab results.
[2023-02-13 15:50] VITALS: BP 116/73; PULSE 82; RESP 20; TEMP 36.8; O2SAT 100
[2023-02-13 15:53] LABS: UTC Strep Screen (Rapid) Positive (Negative)
== END 2023-02-13 16:07 | disposition home or self-care (01) ==
PROVIDERS: Emergency Provider Nurse Practitioner Family; PCP Internal Medicine Adolescent Medicine
DX: J02.0 Streptococcal pharyngitis (principal); R50.9 Fever, unspecified; R05.9 Cough, unspecified
CPT/HCPCS: 87880; 99212; 99214; G0463

== ENCOUNTER 2023-04-29 10:39 | Outpatient (CLI) | payer OTHER, SELFPAY ==
--- NOTE | 2023-04-29 | CA_ITS ---
FINAL REPORT TECHNIQUE: Color Doppler, duplex Doppler and compression sonography of the left lower extremity deep venous systems was performed. CLINICAL HISTORY: Left calf pain with swelling x 3 days COMPARISON: None FINDINGS: There is no evidence of deep venous thrombosis from the level of the groin to the calf. The veins are patent and compressible. IMPRESSION: No evidence of deep venous thrombosis left lower extremity. Reviewed, Interpreted and Dictated by Jose Ramon Shannon III, MD Transcribed by Chanel Delatorre Authenticated and [facility]
== END 2023-04-29 23:59 ==
LOC: RT 10:40
PROVIDERS: PCP Internal Medicine Adolescent Medicine; Visit Provider Nurse Practitioner Family
DX: M79.605 Pain in left leg (principal); M79.89 Other specified soft tissue disorders
CPT/HCPCS: 93971

== ENCOUNTER 2023-08-02 08:00 | Emergency (ER) | payer OTHER, SELFPAY ==
[2023-08-02 08:05] VITALS: BP 127/75; PULSE 64; O2SAT 99
[2023-08-02 08:07] VITALS: BP 127/75; PULSE 70; RESP 13; TEMP 36.8; O2SAT 100; BMI 30.1
--- NOTE | 2023-08-02 08:17 | HMH.EDGENADL ---
Discharge Plan Disposition Patient Disposition: Home, Self-Care Prescriptions Prescriptions: New methocarbamol 500 mg tablet 1,000 mg PO Q8H PRN (Reason: muscle spasm) Qty: 24 0RF No Action sertraline 50 mg tablet 50 mg PO DAILY Patient Comments: TAKE 1 TABLET BY MOUTH ONCE DAILY amoxicillin [amoxicillin] 875 mg tablet 875 mg PO Q12H Qty: 20 0RF [id number]-ngyftodtb-[id number] [Bromfed DM] 2-30-10 mg/5 mL Syrup 5 ml PO Q6H PRN (Reason: Cough) Qty: 240 0RF prednisone 10 mg tablet 10 mg PO BID 3 Days Qty: 6 0RF Referrals Follow up/Referrals: Hunter Roach MD [Primary Care Provider] - See instructions Activity Restrictions/Add. Instructions Additional Instructions/Restrictions: At this time it was felt you are safe to be discharged home. If new or worsening symptoms please do not hesitate to return the emergency department. Please take your medications as prescribed and Tylenol every 6 hours for your neck pain. It is very important that you follow-up with your fire alarm installer within 48 hours as discussed for continued hCG ( hormone) levels and possible repeat ultrasound. Clinical Impressions Clinical Impression: Acute torticollis, Positive blood test Discharge ED Provider: Randy Dee General Adult HPI General Chief complaint: PAIN Stated complaint: Pain on R side of neck Time Seen by Provider: 08/02/23 08:00 Mode of Arrival: Ambulatory Source of Information: Patient Limitations: No Limitations Description of Symptoms (Recalled from ER Triage Doc. by RN): pt presents to the ED with c/o right sided neck pain that began in the middle of the night. pt reports pain feels like a spasm. pt reports no known injury. History of Present Illness HPI narrative: Patient is a 33-year-old female with no pertinent past medical history presents emergency department for evaluation of neck pain. Onset was acute, in the middle of the night. She feels as if her muscle is spasming on the right side of her neck. It was worse this morning when she awoke. No new medications. This is never happened before. She does have chiropractor that does high velocity cervical traction as recent as last week. No focal weakness or other acute complaints at this time. Related Data Home Medications Medication Instructions Recorded Confirmed sertraline 50 mg tablet 50 mg PO DAILY 02/13/23 02/13/23 Previous Rx's Medication Instructions Recorded amoxicillin 875 mg tablet 875 mg PO Q12H #20 tabs 02/13/23 qckwnahtnhgopqh-dsructyldroluqi-QL 5 ml PO Q6H PRN Cough #240 mL 02/13/23 2 mg-30 mg-10 mg/5 mL oral syrup (Bromfed DM) prednisone 10 mg tablet 10 mg PO BID 3 days #6 tabs 02/13/23 methocarbamol 500 mg tablet 1,000 mg (2 x 500 mg) PO Q8H PRN 08/02/23 muscle spasm #24 tabs Allergies Allergy/AdvReac Type Severity Reaction Status Date / Time No Known Allergies Allergy Verified 01/07/22 18:08 [facility] Disclaimer: The information contained in this section may have been updated after the patient was seen, as this information can be updated by other users. Social History Smoking Status: Never smoker alcohol intake: never current occupational status: other Travel in the last 8 weeks: None ROS Obtained: Yes Systems reviewed as appropriate & no additional complaints except as documented Physical Exam General General appearance: alert and in no apparent distress Head Head exam: atraumatic and normocephalic Eye Eye exam: Present PERRL and EOMI ENT ENT exam: Present mucous membranes moist Neck Neck exam: Present normal inspection and other (Passive range of motion turning head to the left much more tolerated although with difficulty, turning head to the right not able to conduct secondary to severe pain.) Chest Chest inspection: Present normal inspection and symmetric chest wall rise Respiratory Respiratory exam: Absent respiratory distress Cardiovascular Cardiovascular exam: Present regular rate and normal rhythm Abdominal Exam Abdominal exam: Present soft Extremities Exam Extremities exam: Present normal inspection Neurological Exam Neurological exam: Present alert and CN II-XII intact; Absent motor sensory deficit Psychiatric Psychiatric exam: Present normal affect Skin Skin exam: Present warm and dry Medical Decision Making Jose Manuel Inquiry Pt receiving controlled substance: No Vital Signs: 08/02/23 08:05 08/02/23 08:07 08/02/23 09:01 Temperature 98.2 F Temperature Source Oral Pulse Rate 64 62 Pulse Rate [Left Radial] 70 Respiratory Rate 13 Blood Pressure 127/75 107/74 L Blood Pressure [Right Arm] 127/75 Blood Pressure Mean 81 Blood Pressure Mean [Right Arm] 92 02 Sat by Pulse Oximetry 99 100 98 Oxygen Delivery Method Room Air Room Air Room Air 08/02/23 09:31 08/02/23 10:01 Temperature Temperature Source Pulse Rate 57 L 67 Pulse Rate [Left Radial] Respiratory Rate Blood Pressure 118/60 127/66 Blood Pressure [Right Arm] Blood Pressure Mean 79 74 Blood Pressure Mean [Right Arm] 02 Sat by Pulse Oximetry 100 100 Oxygen Delivery Method Lab Data Lab Results 08/02/23 08:30: WBC 4.4 L, RBC 4.46, Hgb 12.9, Hct 39.6, MCV 88.8, MCH 28.9, MCHC 32.5, RDW 13.8, Plt Count 207, MPV 9.6, Neut % (Auto) 53.4, Lymph % (Auto) 32.3, [facility] [facility] % (Auto) 5.2, Eos % (Auto) 7.4, Baso % (Auto) 1.7, Neut # (Auto) 2.4, Lymph # (Auto) 1.4, [facility] # (Auto) 0.2, Eos # (Auto) 0.3, Baso # (Auto) 0.1, Sodium 142, Potassium 4.2, Chloride 107, Carbon Dioxide 27, Anion Gap 12.2, BUN 18 H, Creatinine 0.80, Estimated Creat Clear 150, Estimated GFR 83, Est GFR ( Amer) 100, Glucose 90, Calcium 9.0, Serum HCG, Qual Positive 08/02/23 08:40: HCG, Quant 4 08/02/23 08:30 08/02/23 08:30 Orders (Tests/Meds): ED MEDICATIONS Generic Name Dose Route Start Last Admin Trade Name Freq PRN Reason Stop Dose Admin Sodium Chloride 10 ml 08/02/23 08:38 Sodium Chloride 0.9% 10ml Flush Syringe IV 09/01/23 08:37 NEEDED PRN Maintain IV Site Discontinued Medications Generic Name Dose Route Start Last Admin Trade Name Freq PRN Reason Stop Dose Admin Acetaminophen 1,000 mg 08/02/23 08:18 08/02/23 08:44 Acetaminophen 500mg Tab PO 08/02/23 08:19 1,000 mg ONCE ONE Administration Diazepam 5 mg 08/02/23 08:18 08/02/23 08:44 Diazepam 10mg/2ml Syringe IV 08/02/23 08:19 5 mg ONCE ONE Administration Ibuprofen 600 mg 08/02/23 08:18 08/02/23 08:44 Ibuprofen 600 Mg Tablet PO 08/02/23 08:19 600 mg ONCE ONE Administration ORDERS Category Date Time Status BMP [Basic Metabolic Panel] Stat Lab 08/02/23 08:30 Completed Beta HCG, Quant [HCG,Quantitative] Stat Lab 08/02/23 08:40 Completed CBC w/Auto Diff [Complete Blood Count Auto Diff] Stat Lab 08/02/23 08:30 Completed HCG Qualitative, Serum Stat Lab 08/02/23 08:30 Completed US OB transvaginal Stat Ultrasound 08/02/23 10:02 Completed Medical Decision Narrative: In summary patient is a 33-year-old female with past medical history described above who presents emergency department for evaluation of neck pain. Patient is hemodynamically stable nontoxic-appearing upon arrival, afebrile. Differential diagnosis includes torticollis, vertebral artery dissection in the setting of high velocity cervical traction, among others. Workup will be conducted with hematologic labs, CTA neck. Initial inventions include Tylenol, ibuprofen, diazepam. Initial workup reviewed by me, patient has serum positive test, remainder of hematologic labs are nonactionable. Given the patient did not have neck pain directly after her cervical traction and multiple days have passed prior to her onset of neck pain my suspicion for traumatic vertebral artery dissection is low and I feel that the benefits of radiation in the setting of positive test outweigh the risks. Upon repeat evaluation patient had some resolution of her neck pain with improved range of motion. Given this CT imaging will be deferred at this time. Quantitative hCG and transvaginal ultrasound be obtained given that patient had her tubes tied 7 years ago. Patient's menstrual period was supposed to begin yesterday. Quantitative hCG is 4. Transvaginal sound shows no evidence of intrauterine gestation, thickened endometrium, cystic structure in the cervix which likely represents a nabothian cyst, multiple follicles on both ovaries. Upon repeat evaluation patient had continued improvement of her neck range of motion for which I am even less concerned about the etiology of her pain given that is likely torticollis. Patient has no current vaginal bleeding, no abdominal pain. Given this patient is appropriate for discharge at this time with expeditious outpatient follow-up in 48 hours which was impressed upon her and she verbalized understanding. Shared decision-making discussion was had, it is likely that this hCG is erroneous however methocarbamol is a category C which will help her torticollis and she wishes to proceed with this for which she will be given a prescription. Patient was discharged in stable condition. Critical Care Critical Care Time Critical Care Time: No
--- NOTE | 2023-08-02 08:17 | PC.NURSE ---
laborer rags reports 3 minutes until d dimer results resulted
[2023-08-02] MEDS: IBUPROFEN 600 MG TABLET PO (08:44)
[2023-08-02] MEDS: ACETAMINOPHEN 500MG TAB 1000 MG PO (08:44)
[2023-08-02] MEDS: diazePAM 10MG/2ML SYRINGE 5 MG IV (08:44)
[2023-08-02 08:48] LABS: Chloride 107 mmol/L (98-107); Sodium 142 mmol/L (136-145)
[2023-08-02 08:49] LABS: Potassium 4.2 mmoL/L (3.5-5.1)
[2023-08-02 08:51] LABS: Blood Urea Nitrogen 18 mg/dl (7-17); Creatinine Clearance Estimated 150 mL/min (50-200); Estimated Glomerular Filt Rate 83 ml/min (>60); GFR (African American) 100 ML/MIN (>60)
[2023-08-02 08:52] LABS: Anion Gap 12.2 mEq/L (5-15); Carbon Dioxide 27 mmol/L (22.0-30.0); Glucose 90 mg/dl (74-100)
[2023-08-02 08:56] LABS: Basophils # 0.1 K/mm3 (0-0.2); Basophils % 1.7 % (0.1-2.0); Eosinophils # 0.3 K/mm3 (0.0-0.4); Eosinophils % 7.4 % (0.1-12.0); Hematocrit 39.6 % (37.0-47.0); Hemoglobin 12.9 g/dL (12.2-16.2); Lymphocytes # 1.4 K/mm3 (0.7-4.5); Lymphocytes % 32.3 % (10-50); Mean Corpuscular HGB Conc 32.5 g/dL (31.8-35.4); Mean Corpuscular Hemoglobin 28.9 pg (27.0-31.2); Mean Corpuscular Volume 88.8 fl (81-99); Mean Platelet Volume 9.6 fl (7.4-10.4); Monocytes # 0.2 K/mm3 (0.1-1.0); Monocytes % 5.2 % (1.7-9.3); Neutrophils # 2.4 K/mm3 (1.8-7.8); Neutrophils % 53.4 % (37.0-80.0); Platelet Count 207 K/mm3 (142-424); Red Blood Count 4.46 M/mm3 (4.20-5.40); Red Cell Distribution Width 13.8 % (11.5-17.5); White Blood Count 4.4 K/mm3 (4.8-10.8)
[2023-08-02 09:01] VITALS: BP 107/74; PULSE 62; O2SAT 98
--- NOTE | 2023-08-02 09:15 | PC.NURSE ---
Rounded on patient; pt sitting up on side of stretcher for comfort, family at BS. No needs at this time, call coyle within reach.
[2023-08-02 09:31] VITALS: BP 118/60; PULSE 57; O2SAT 100
[2023-08-02 09:45] LABS: HCG Qualitative, Serum Positive (Negative)
--- NOTE | 2023-08-02 09:48 | PC.NURSE ---
DR CRUZ AT BEDSIDE TO UPDATE PT
[2023-08-02 10:01] VITALS: BP 127/66; PULSE 67; O2SAT 100
--- NOTE | 2023-08-02 10:02 | US_ITS ---
PROCEDURE INFORMATION: Exam: US , Transvaginal Exam date and time: 08/02/2023 10:10 AM Age: 33 years old Clinical indication: Abnormal findings; Abnormal lab test; Change in hcg; Patient HX: Tanvir--4. Pos test this am---btl x 7 yrs--; Additional info: Tubes tied, pos preg LABS AND CLINICAL REPORTS: Last menstrual period start date: 06/30/2023 Gestational age (Established): 4 w 5 d Estimated due date (Established): 04/05/2024 TECHNIQUE: Imaging protocol: Real-time transvaginal obstetrical ultrasound of the maternal pelvis with image documentation. Transvaginal imaging was used for better evaluation of the fetus, adnexa, and/or cervix. COMPARISON: CT ABDOMEN PELVIS W CON 01/14/2023 1:43 PM FINDINGS: Gestation: No evidence of intrauterine gestation. MATERNAL: Uterus: Uterus measures 8.7 cm x 5.2 cm x 5 cm. A nabothian cyst is noted on the cervix. No evidence of gestation in the endometrial cavity. The endometrium is thickened measuring 17 mm. Right ovary/adnexa: Right ovary measures 3 cm x 2.8 cm x 2 cm. Right ovarian volume is 8.6 mL. Multiple follicles are noted in the right ovary. Left ovary/adnexa: Left ovary measures 2.8 cm x 1.8 cm x 1.5 cm. Left ovarian volume is 4 mL. Multiple follicles noted in the left ovary. IMPRESSION: 1. No evidence of intrauterine gestation. Differential diagnosis includes early , . Ectopic is not entirely excluded. Serum beta HCG and ultrasound are recommended. 2. Thickened endometrium may be due to changes or retained products of conception. Attention on follow-up is recommended. 3. Cystic structure in the cervix most likely represents a nabothian cyst. with passing gestational sac is not entirely excluded. 4. Multiple follicles in both ovaries can be seen with polycystic ovarian syndrome. Physical examination and correlation is recommended for confirmation.
--- NOTE | 2023-08-02 10:10 | PC.NURSE ---
PT TO US
[2023-08-02 10:19] LABS: HCG,Quantitative 4 mIU/ml (0-5.42)
--- NOTE | 2023-08-02 10:40 | PC.NURSE ---
PT RETURNED FORM US
--- NOTE | 2023-08-02 11:28 | PC.NURSE ---
DR CRUZ AT BEDSIDE TO UPDATE PT
[2023-08-02 11:30] VITALS: BP 129/61; PULSE 70; RESP 18; TEMP 36.7; O2SAT 98
== END 2023-08-02 11:36 | disposition home or self-care (01) ==
PROVIDERS: Emergency Provider Emergency Medicine; PCP Internal Medicine Adolescent Medicine
DX: M43.6 Torticollis (principal); Z32.01 Encounter for pregnancy test, result positive
CPT/HCPCS: 76817; 80048; 84702; 84703; 85025; 96374; 99284

== ENCOUNTER 2024-01-31 15:40 | Emergency (ER) | payer OTHER, SELFPAY ==
[2024-01-31 16:10] VITALS: BP 130/78; PULSE 88; RESP 21; TEMP 37.1; O2SAT 98; BMI 38.7
[2024-01-31 16:25] LABS: UTC Influenza A Antigen Negative (Negative); UTC Influenza B Antigen Negative (Negative)
--- NOTE | 2024-01-31 16:28 | EXP.UTC ---
Discharge Plan Disposition Patient Disposition: Home, Self-Care Condition: Good Prescriptions Prescriptions: New guaifenesin [Mucinex] 1,200 mg tablet extended release 12hr 1,200 mg PO Q12H PRN (Reason: congestion) Qty: 20 0RF benzonatate 100 mg capsule 100 mg PO TID PRN (Reason: cough) Qty: 30 0RF No Action sertraline 50 mg tablet 50 mg PO DAILY Patient Comments: TAKE 1 TABLET BY MOUTH ONCE DAILY dextroamphetamine-amphetamine 25 mg capsule,extended release 24hr 25 mg PO DAILY Patient Comments: TAKE 1 CAPSULE BY MOUTH IN THE MORNING Referrals Follow up/Referrals: Hunter Roach MD [Primary Care Provider] - See instructions Activity Restrictions/Add. Instructions Additional Instructions/Restrictions: *Monitor Temp, Over the counter Motrin or Tylenol as directed/as needed Tylenol every 4 hours and Motrin every 6 hours (as long as your family doctor has told you that you can take it) for fever or pain. and straight to ER if unable to lower temp less than 101.0 after medication given *Warm salt water gargles may help to soothe the throat *Throat Lozenges? *Warm fluids like tea with honey may help to soothe the throat? *Sleep elevated *Humidifier/Vaporizer You was tested for COVID today your test results should be back later this evening Follow up IMMEDIATELY for new or worsening symptoms or no Noticeable improvement over the next 48-72 hours. 911 for difficulty breathing or swallowing Clinical Impressions Clinical Impression: URI (upper respiratory infection) Instructions Patient Instructions: DI for Cough -- Adult, Guaifenesin Print Language Print Language: [place]i Discharge ED Provider: Chelsea Spence [facility] HPI General Stated complaint: body aches wheezy cough Mode of Arrival: Ambulatory Source of Information: Patient Limitations: No Limitations Time Seen by Provider: 01/31/24 16:28 Description of Symptoms (Recalled from Triage Doc. by RN): PATIENT C/O BODY ACHES, CHILLS, CHEST CONGESTION AND COUGH HEENT Symptoms (Recalled from RN notes): No Resp Symptoms (Recalled from RN notes): Yes Skin Symptoms (Recalled from RN notes): No MS Symptoms (Recalled from RN notes): No Functional Status (Recalled from RN notes): WNL History of Present Illness Provider Complaint: Patient states that she has been having a cough for about a week States yesterday she started with chest congestion, feeling achy, chills and over all not feeling well States today she has continued to have symptoms so she came in to get checked Related Data Home Medications ?Medication ?Instructions ?Recorded ?Confirmed sertraline 50 mg tablet 50 mg PO DAILY 02/13/23 01/31/24 dextroamphetamine-amphetamine ER 25 mg PO DAILY 01/31/24 01/31/24 25 mg 24hr capsule,extend release Previous Rx's ?Medication ?Instructions ?Recorded benzonatate 100 mg capsule 100 mg PO TID PRN cough #30 caps 01/31/24 guaifenesin 1,200 mg tablet, 1,200 mg PO Q12H PRN congestion 01/31/24 extended release 12 hr (Mucinex) #20 tabs Allergies Allergy/AdvReac Type Severity Reaction Status Date / Time No Known Allergies Allergy Verified 01/07/22 18:08 Worker's Comp Is this a Worker's Comp case?: No PFSH [facility] Disclaimer: The information contained in this section may have been updated after the patient was seen, as this information can be updated by other users. Social History Smoking Status: Never smoker alcohol intake: never current occupational status: other Travel in the last 8 weeks: None Have you lived/traveled outside [place] in past 30 days?: No Contact w/someone who lives/traveled outside [place] past 30 days?: No Exposure to someone with infectious disease in past 14 days?: No Do you have a fever (greater than 100.4 F or 38 C)?: No Have you tested positive for COVID-19: No Exposed to someone with COVID-19 in past 14 days?: No Do you have a sore throat?: No Do you have a cough?: Yes Do you have any weakness?: No Do you have any diarrhea?: No Are you experiencing any unusual bleeding?: No Do you have any muscle aches/pain?: Yes Do you have any abdominal pain?: No Are you experiencing loss of taste or smell?: No ROS Obtained: Yes All systems reviewed & no additional complaints except as documented and Yes Systems reviewed as appropriate & no additional complaints except as documented Constitutional Constitutional: Reports system reviewed and no additional complaints, except as documented, Reports as per HPI, Reports body ache, Reports chills, Reports fever(s) and Reports headache(s) ENT Ears, Nose, Mouth, and Throat: Reports system reviewed and no additional complaints, except as documented, Reports as per HPI, Reports headache(s), Reports nasal congestion and Reports nasal discharge Cardiovascular Cardiovascular: Reports system reviewed and no additional complaints, except as documented and Reports as per HPI Respiratory Respiratory: Reports system reviewed and no additional complaints, except as documented, Reports as per HPI, Reports chest congestion and Reports cough Gastrointestinal Gastrointestingal: Reports system reviewed and no additional complaints, except as documented and as per HPI Neurologic Neurologic: Reports headache(s) Physical Exam General General appearance: alert and in no apparent distress ENT ENT exam: Present mucous membranes moist Expanded ENT Exam Nose exam: Absent sinus tenderness Throat exam: Present other (PND noted) Respiratory Respiratory exam: Present normal lung sounds bilaterally; Absent respiratory distress or wheezes Cardiovascular Cardiovascular exam: Present regular rate, normal rhythm and normal heart sounds Abdominal Exam Abdominal exam: Present soft and normal bowel sounds; Absent distention or tenderness Neurological Exam Neurological exam: Present alert, oriented X3 and normal gait Medical Decision Making Medical Records Screening: Per USPSTF and CDC recommendations, given the prevalence of disease in our region, it is our hospital?s policy to screen for HIV and viral Hepatitis for all patients aged 18 and over and those with ongoing risk factors. Jose Manuel Inquiry Pt receiving controlled substance: No Jose Manuel was queried for this patient: No Vital Signs: 01/31/24 16:10 Temperature 98.7 F Temperature Source Oral Pulse Rate [Left Brachial] 88 Respiratory Rate 21 Blood Pressure [Left Arm] 130/78 Blood Pressure Mean [Left Arm] 95 Blood Pressure Source [Left Arm] Automatic Cuff Blood Pressure Position [Left Arm] Sitting 02 Sat by Pulse Oximetry 98 Oxygen Delivery Method Room Air Lab Data Lab results reviewed: Yes I reviewed the patient's lab results. Lab Results 01/31/24 16:04: Influenza Type A Ag Negative, Influenza Type B Ag Negative Orders (Tests/Meds): ORDERS Category Date Time Status Covid-19 Nasal PCR ([facility]) Routine Lab 01/31/24 16:26 Ordered
[2024-01-31 16:37] VITALS: BP 130/78; PULSE 88; RESP 21; TEMP 37.1; O2SAT 98
== END 2024-01-31 16:40 | disposition home or self-care (01) ==
PROVIDERS: Emergency Provider Nurse Practitioner; PCP Internal Medicine Adolescent Medicine
DX: J06.9 Acute upper respiratory infection, unspecified (principal); R05.9 Cough, unspecified; R50.9 Fever, unspecified; R09.81 Nasal congestion; R51.9 Headache, unspecified
CPT/HCPCS: 87635; 87804; 99212; G0381